=== PATIENT | male | born 1985 | race African-American/Black ===

== ENCOUNTER 2021-03-04 17:16 | Emergency (ER) | payer MEDICAID ==
[~2021-03-04] VITALS: Ht 175.3 cm; Wt 100.0 kg
[2021-03-04 17:27] VITALS: BP 150/80
== END 2021-03-04 20:40 | disposition home or self-care (01) ==
LOC: ER 17:16
DX: H00.014 Hordeolum externum left upper eyelid (principal); H00.011 Hordeolum externum right upper eyelid
CPT/HCPCS: 99281